=== PATIENT | female | born 1975 | race Caucasian/White ===

== ENCOUNTER 2022-08-11 09:46 | Emergency (ER) | payer OTHER ==
[~2022-08-11] VITALS: Ht 170.2 cm; Wt 77.1 kg
--- NOTE | 2022-08-11 10:04 | NUR ---
URINE COLLECTED AND SENT
--- NOTE | 2022-08-11 10:04 | NUR ---
IV ESTABLISHED L AC 20G, LAB DRAWN AND COLLECTED.
--- NOTE | 2022-08-11 10:05 | NUR ---
WAIVER SIGNED AND PLACED IN PT'S CHART
[2022-08-11] MEDS ORDERED: ONDANSETRON HCL/PF 4 MG/2 ML VIAL ONE (10:07)
[2022-08-11] MEDS ORDERED: HYDROMORPHONE 1 MG/1 ML DISP.SYRIN ONE (10:08)
--- NOTE | 2022-08-11 10:10 | NUR ---
BLOOD DROW AND SENT TO LAB UA SENT TO LAB
[2022-08-11] MEDS ORDERED: ONDANSETRON HCL/PF 4 MG/2 ML VIAL IVP ONE (10:30)
[2022-08-11] MEDS ORDERED: HYDROMORPHONE INJ 2 MG/ML DISP.SYRIN IV ONE (10:30)
[2022-08-11] MEDS ORDERED: IV NS 0.9% 1,000 ML BAG IV ONE (10:30)
[2022-08-11 10:36] LABS: BILIRUBIN,URINE NEGATIVE (NEGATIVE); COLOR,URINE YELLOW (YELLOW); LEUKOCYTE ESTERASE ,URINE NEGATIVE (NEGATIVE); NITRITE, URINE NEGATIVE (NEGATIVE); PROTEIN,URINE NEGATIVE (NEGATIVE); UGLUCOSE NEGATIVE (NEGATIVE); UROBILINOGEN,URINE 0.2 EU/dL (0.2)
[2022-08-11 10:37] LABS: BASOPHILS # (AUTO) 0.1 K/uL (0.0-0.2); BASOPHILS % (AUTO) 0.9 % (0.0-2.0); EOSINOPHILS % (AUTO) 1.7 % (0.0-6.0); HEMATOCRIT 37 % (33-45); HEMOGLOBIN 11.8 g/dL (11.5-14.8); LYMPHOCYTES # (AUTO) 1.4 K/uL (0.8-4.8); LYMPHOCYTES % (AUTO) 17.6 % (20.0-44.0); MEAN CORPUSCULAR HGB CONC 32 g/dl (31.0-36.0); MEAN CORPUSCULAR VOLUME 85 fL (82-100); MONOCYTES # (AUTO) 0.4 K/uL (0.1-1.30); MONOCYTES % (AUTO) 5.4 % (2.0-12.0); NEUTROPHILS % (AUTO) 74.4 % (43.0-81.0); PLATELET COUNT (AUTO) 283 K/uL (150-450)
[2022-08-11 10:45] LABS: ALBUMIN 3.7 g/dL (3.4-5.0); BILIRUBIN,DIRECT 0.1 mg/dL (0.0-0.2); BILIRUBIN,TOTAL 0.3 mg/dL (0.2-1.0); CALCIUM, SERUM 8.9 mg/dL (8.5-10.1); POTASSIUM 4.2 mmol/L (3.5-5.1); TOTAL PROTEIN, SERUM 6.9 g/dL (6.4-8.2)
[2022-08-11 10:54] LABS: BACTERIA,URINE Few /HPF (None Seen); RBC,URINE 0-2 /HPF (0-2); SQUAMOUS EPITHELIAL CELL,UR Few /HPF (None Seen)
--- NOTE | 2022-08-11 11:26 | NUR ---
RESTING AT THIS TIME
--- NOTE | 2022-08-11 11:55 | NUR ---
TO CT SCAN OF ABDOMINE
--- NOTE | 2022-08-11 12:30 | NUR ---
RESTING AT THIS TIME
--- NOTE | 2022-08-11 13:16 | NUR ---
AWAITING DIPOSITION OF PATIENT BY .
--- NOTE | 2022-08-11 13:30 | NUR ---
DINESES ABDOMINALE PAIN AT THIS TIME
[2022-08-11] MEDS ORDERED: OXYC-128 PO (13:33)
[2022-08-11] MEDS ORDERED: IBUP-1955 PO (13:33)
[2022-08-11] MEDS ORDERED: TAMS-12 PO (13:34)
--- NOTE | 2022-08-11 13:45 | NUR ---
IV removed. Catheter intact and site benign. Pressure and 4x4 applied to site. No bleeding noted.
--- NOTE | 2022-08-11 13:47 | NUR ---
Patient discharged to home in stable condition. Written and verbal after care instructions given. Patient verbalizes understanding of instruction.
[2022-08-11 14:06] VITALS: BP 135/77
== END 2022-08-11 14:08 | disposition home or self-care (01) ==
LOC: ER 09:50
DX: N20.1 Calculus of ureter (principal); R10.9 Unspecified abdominal pain; R11.0 Nausea; I10 Essential (primary) hypertension; Z88.2 Allergy status to sulfonamides
CPT/HCPCS: 99285; 74176; 96374; 96361; 96375; 85025; 80048; 80076; 84703; 81001; 36415; J2405; J7030; J1170